=== PATIENT | male | born 1960 | race Caucasian/White ===

== ENCOUNTER 2018-05-17 03:29 | Emergency (ER) | payer SELFPAY ==
[~2018-05-17] VITALS: Ht 177.8 cm; Wt 119.0 kg
[2018-05-17] MEDS ORDERED: ASPIRIN 81 MG TABLET CHEW PO ONE (04:00)
[2018-05-17] MEDS ORDERED: ASPIRIN 81 MG TABLET CHEW ONE (04:15)
[2018-05-17 04:34] LABS: BASOPHILS # (AUTO) 0.04 x10^3/uL (0-0.1); BASOPHILS % (AUTO) 1 % (0-1); EOSINOPHILS % (AUTO) 2 % (1-7); LYMPHOCYTES # (AUTO) 1.95 x10^3/uL (1-3.4); LYMPHOCYTES % (AUTO) 36 % (22-44); MD NO; MEAN CORPUSCULAR HEMOGLOBIN 29.5 pg (27.5-34.5); MEAN CORPUSCULAR VOLUME 86.6 fL (81-97); MEAN PLATELET VOLUME 8.1 fL (7.4-10.4); MONOCYTES # (AUTO) 0.49 x10^3/uL (0.2-0.8); MONOCYTES % (AUTO) 9 % (2-9); NEUTROPHILS # (AUTO) 2.87 x10^3/uL (1.8-6.8); NEUTROPHILS % (AUTO) 53 % (42-75); PLATELET COUNT 257 x10^3/uL (130-400); RED BLOOD COUNT 5.07 x10^6/uL (4.38-5.82); RED CELL DISTRIBUTION WIDTH 13.5 % (9.4-14.8)
[2018-05-17 04:40] LABS: ALBUMIN 3.7 g/dL (3.4-5.0); ANION GAP 7 mmol/L (5-15); CALCIUM 8.2 mg/dL (8.5-10.1); CHLORIDE 109 mmol/L (98-107)
[2018-05-17 04:47] LABS: ALANINE AMINOTRANSFERASE 26 U/L (12-78); ALKALINE PHOSPHATASE 58 U/L (45-117); BILIRUBIN,TOTAL 0.4 mg/dL (0.2-1.0); CREATININE 1.14 mg/dL (0.7-1.3); FREE T4 (FREE THYROXINE) 0.88 ng/dL (0.76-1.46); TOTAL PROTEIN 6.9 g/dL (6.4-8.2); TROPONIN I 0.019 ng/mL (0.000-0.045)
[2018-05-17 05:00] VITALS: BP 138/78
== END 2018-05-17 05:48 | disposition home or self-care (01) ==
LOC: ED 05:40
DX: R07.9 Chest pain, unspecified (principal); R00.2 Palpitations
CPT/HCPCS: 36415; 71045; 80053; 83735; 84439; 84443; 84484; 85025; 93005; 99285